=== PATIENT | female | born 1975 | race Caucasian/White ===

== ENCOUNTER 2019-07-04 15:38 | Emergency (ER) | payer BC, MEDICAID ==
[~2019-07-04] VITALS: Ht 172.7 cm; Wt 79.4 kg
[2019-07-04 16:39] LABS: Basophils # (auto) 0.1 10 ^3/uL (0-0.2); Eosinophils # (auto) 0 10 ^3/uL (0-0.8); Eosinophils % (auto) 0.2 % (0.0-7.0); Lymphocytes # (auto) 2.2 10 ^3/uL (0.4-5.4); Mean Corpuscular Hemoglobin 30.1 pg (28.0-32.0); Mean Corpuscular Volume 93.3 fL (80.0-100.0); Red Blood Cells 2.77 10^6/uL (4.0-5.20); White Blood Cell 8.1 10^3/uL (4.4-10.8)
[2019-07-04 16:42] LABS: Basophils % (auto) 0.9 % (0.0-2.0); Hematocrit 25.8 % (36.0-46.0); Hemoglobin 8.3 g/dL (12.2-16.2); Lymphocytes % (auto) 27.4 % (10.0-50.0); Mean Corpuscular Hgb Conc. 32.2 g/dL (32.0-36.0); Monocytes # (auto) 0.5 10 ^3/uL (0-1.3); Monocytes % (auto) 6.7 % (0.0-12.0); Neutrophils # (auto) 5.2 10 ^3/uL (1.6-8.6); Neutrophils % (auto) 64.8 % (37.0-80.0); Red Cell Distribution Width 15.7 % (11.8-14.3)
[2019-07-04 16:47] LABS: Albumin 3.2 g/dL (3.4-5.0); Anion Gap 8 (5-15); Blood Urea Nitrogen 32 mg/dL (7-18); Calcium 8.3 mg/dL (8.5-10.1); Carbon Dioxide 20 mmol/L (21-32); Chloride 110 mmol/L (98-107); Glucose 129 mg/dL (74-106); Magnesium 2.1 mg/dL (1.6-2.6); Potassium 4.1 mmol/L (3.5-5.1); Sodium 138 mmol/L (136-145)
[2019-07-04 16:49] LABS: Alanine Aminotransferase 13 U/L (13-56); Aspartate Aminotransferase 6 U/L (15-37); BUN/Creatinine Ratio 32.7; GFR African American 79 mL/min; GFR Non-African American 66 mL/min
[2019-07-04 16:54] LABS: Alkaline Phosphatase 67 U/L (45-117); Bilirubin, Total 0.2 mg/dL (0.2-1.0); Total Protein 7.3 g/dL (6.4-8.2)
[2019-07-04 17:16] LABS: Platelet Count (auto) 834 10^3/uL (140-450)
[2019-07-04 17:18] LABS: INR 1.13 (0.9-1.15); Partial Thromboplastin Time 24.2 sec (23.64-32.05)
[2019-07-04] MEDS ORDERED: MECLIZINE HCL 25 MG TAB PO ONE (20:00)
[2019-07-04] MEDS ORDERED: SODIUM CHLORIDE 0.9% 1,000 ML IV ONE (20:30)
[2019-07-05 01:05] VITALS: BP 111/109
== END 2019-07-05 00:19 | disposition home or self-care (01) ==
LOC: ER 15:38
DX: D69.6 Thrombocytopenia, unspecified (principal); R42 Dizziness and giddiness; R07.89 Other chest pain; I10 Essential (primary) hypertension; E11.9 Type 2 diabetes mellitus without complications; Z90.710 Acquired absence of both cervix and uterus; Z88.8 Allergy status to other drugs, medicaments and biological substances
CPT/HCPCS: 36415; 71045; 80053; 83735; 83880; 84443; 84484; 85025; 85379; 85610; 85730; 93005; 96360; 99285; J7030; J8597

== ENCOUNTER 2021-03-31 14:50 | Emergency (ER) | payer OTHER, MEDICAID ==
[~2021-03-31] VITALS: Ht 172.7 cm; Wt 92.1 kg
[2021-03-31 14:51] VITALS: BP 177/95
[2021-03-31] MEDS ORDERED: ACETAMINOPHEN 500 MG TAB PO ONE (17:45)
== END 2021-03-31 23:56 | disposition left against medical advice (07) ==
LOC: ER 14:50
DX: M54.50 Low back pain, unspecified (principal); Z53.21 Procedure and treatment not carried out due to patient leaving prior to being seen by health care provider
CPT/HCPCS: 72100